=== PATIENT | male | born 1970 | race African-American/Black ===

== ENCOUNTER 2019-11-29 01:23 | Emergency (ER) | payer OTHER ==
[~2019-11-29] VITALS: Ht 188 cm; Wt 154.2 kg
[2019-11-29] MEDS ORDERED: LISINOPRIL-HCT1 EACH PO (01:32)
[2019-11-29] MEDS ORDERED: NORVASC 2.5 MG2.5 M1 PO (01:32)
[2019-11-29 02:15] LABS: ANION GAP 8 mmol/L (7-16); BUN 14 mg/dL (7-18); CALCIUM 9.5 mg/dL (8.5-10.1); CHLORIDE 93 mmol/L (98-107); CO2 27 mmol/L (21-32); CREATININE 1.4 mg/dL (0.7-1.3); GLUCOSE 281 mg/dL (74-106); POTASSIUM 3.9 mmol/L (3.5-5.1); SODIUM 128 mmol/L (136-145)
[2019-11-29 02:25] LABS: ALBUMIN 4.5 g/dL (3.4-5.0); LIPASE 152 U/L (73-393); SGOT 31 U/L (15-37); SGPT 49 U/L (30-65); TOTAL BILIRUBIN 0.6 mg/dL (0.2-1.0); TOTAL PROTEIN 8.4 g/dL (6.4-8.2); TROPONIN-I <0.06 ng/mL (<0.06)
[2019-11-29 02:30] LABS: URINE BILIRUBIN NEGATIVE (Negative); URINE BLOOD 1+ (Negative); URINE CLARITY CLEAR; URINE COLOR YELLOW; URINE GLUCOSE-RANDOM* 3+ (Negative); URINE KETONES 1+ (Negative); URINE LEUKOCYTES-REFLEX NEGATIVE (Negative); URINE NITRITE-REFLEX NEGATIVE (Negative); URINE PROTEIN (DIPSTICK) 2+ (Negative)
[2019-11-29 02:31] LABS: ABSOLUTE NEUTROPHILS 9.6 thou/uL (1.4-8.2); BASOPHILS 0.3 % (0.0-2.0); EOSINOPHILS 0.2 % (0.0-3.0); HEMATOCRIT 46.2 % (42.0-52.0); HEMOGLOBIN 14.8 gm/dL (14.0-18.0); MCH 26.6 pg (26.0-34.0); MCHC 32.1 g/dL (28.0-37.0); MCV 83.1 fL (80.0-100.0); MONOCYTES 2.3 % (1.0-8.0); PLATELET COUNT 167 thou/uL (150-400); POLYS 88.2 % (36.0-66.0); RBC 5.56 mil/uL (4.50-6.00); RDW 13.7 % (10.5-14.5); WBC 10.9 thou/uL (4.0-11.0)
[2019-11-29 02:39] LABS: BACTERIA-REFLEX 1-9 Few /HPF (None Seen); CASTS None Seen /LPF (None Seen); CRYSTALS None Seen /LPF (None Seen); MUCUS 4-6 Moderate strn/LPF (None Seen); SQUAMOUS 4-10 Moderate /LPF (0-3); URINE RBC 3-10 Few /HPF (0-2); URINE WBC-REFLEX 0-5 Rare /HPF (0-5)
[2019-11-29] MEDS ORDERED: ONDANSETRON ODT8 MG PO (03:20)
[2019-11-29] MEDS ORDERED: TRAMADOL 50 MG50 MG PO (03:20)
[2019-11-29] MEDS ORDERED: PRILOSEC OTC20 MG PO (03:20)
[2019-11-29 03:36] VITALS: BP 135/75
--- NOTE | 2019-11-29 14:06 | EKG ---
[facility] [address] [place] [address] ELECTROCARDIOGRAM REPORT Name: ELIAN MITCHELL [id number] Admission: 11/29/19 Attend Phys: Discharge: 11/29/19 Date of : 72 Report #: [id number] THIS REPORT FOR: cc: Elsie Thorpe Beth RNP Couchonnal, Luis F. MD ~ THIS REPORT FOR: //name// [facility] ED Test Date: 2019-11-29 Test Time: 02:13:17 Pat Name: ELIAN MITCHELL Department: Room: Gender: Satellite Technician: [place] [id number] : 1970 Requested By: Mohan Mark Order Number: [id number] MD: Pablo Foley Measurements Intervals [place] Rate: 84 P: 54 [place]: 228 QRS: 54 QRSD: 114 T: 7 QT: 414 QTc: 490 Interpretive Statements Sinus rhythm Prolonged [place] interval Probable left atrial enlargement Borderline intraventricular conduction delay Electronically Signed On 11-29-2019 14:05:42 CDT by Pablo Foley [email or web address] <ELECTRONICALLY SIGNED> By: Pablo Foley MD 11/29/19 1405 2 2 Pablo Foley MD /DAVIN
== END 2019-11-29 03:36 | disposition home or self-care (01) ==
LOC: ER 01:23
PROVIDERS: Emergency Medicine
DX: R10.13 Epigastric pain (principal); R11.2 Nausea with vomiting, unspecified; I10 Essential (primary) hypertension; Z98.890 Other specified postprocedural states; Z90.89 Acquired absence of other organs; Z79.899 Other long term (current) drug therapy

== ENCOUNTER → 2019-12-03 | Outpatient (CLI) | payer OTHER ==
[~2019-12-03] MED LIST: LISINOPRIL-HCT1 EACH PO; METFORMIN HCL500 M3 PO; NORVASC 2.5 MG2.5 M1 PO; ONDANSETRON ODT8 MG PO; OXYCODONE HCL 55 MG PO; PRILOSEC OTC20 MG PO; TRAMADOL 50 MG50 MG PO
== END ==
LOC: ULTRA 08:25
PROVIDERS: ATTEND Nurse Practitioner
DX: K80.80 Other cholelithiasis without obstruction (principal); N28.1 Cyst of kidney, acquired

== ENCOUNTER 2019-12-04 10:15 | Inpatient (IN) | payer OTHER ==
[~2019-12-04] VITALS: Ht 188 cm; Wt 148.3 kg
--- NOTE | ~2019-12-04 | O ---
[facility] [place] [address] OPERATIVE REPORT Name: ELIAN MITCHELL Room #: 437-P ADM IN M.R.#: [id number] Admission: 12/04/19 Attend Phys: Osmar Ayoub MD Discharge: Date of : 72 Report #: [id number] THIS REPORT FOR: cc: Elsie Thorpe Beth RNP Gates,Osmar Wetzel MD ~ CC: Elsie Ayoub DATE OF SERVICE: 12/05/2019 PROCEDURES PERFORMED: 1. Laparoscopic lysis of adhesions. 2. Laparoscopic cholecystectomy with intraoperative cholangiogram. PREOPERATIVE DIAGNOSIS: Acute cholecystitis. POSTOPERATIVE DIAGNOSIS: Severe chronic cholecystitis. SURGEON: Dr. Ayoub. PAPER STACKER: None. ANESTHESIA: 1. General. 2. Local. ESTIMATED BLOOD LOSS: 30 mL. SPECIMENS: Gallbladder and contents. COMPLICATIONS: None. FINDINGS: 1. Intra-abdominal adhesions. 2. Intraoperative cholangiogram findings: Ductotomy was on the cystic duct, normal common bile duct/common hepatic duct and proximal radical filling, no filling defects, filling of the duodenum appropriately, smooth tapering of the distal common bile duct. 3. Severe cholecystitis. INDICATIONS FOR PROCEDURE: The patient is a 49-year-old gentleman who recently presented to the ER, had a CT scan performed for epigastric abdominal pain. CT scan was normal. The patient was discharged home and followed up with primary care physician. Primary care physician ordered an ultrasound, which demonstrated dilated common bile duct and gallstones as well as other features. [facility] [address] [place] [address] OPERATIVE REPORT Name: ELIAN MITCHELL Room #: 437-P ADM IN M.R.#: [id number] Admission: 12/04/19 Attend Phys: Osmar Ayoub MD Discharge: Date of : 72 Report #: [id number] The patient was instructed to be directly admitted for workup. He was found to not have choledocholithiasis on imaging. The risks, benefits and alternatives of the procedure were discussed with the patient. The risks discussed included but were not limited to the risk of bleeding, infection, conversion to open, damage to any intra-abdominal anatomy (small bowel, large bowel, kidney, liver, spleen, blood vessels, nerves, etc.), damage to the common bile duct, necessitating further open procedures, prolonged hospitalization, future hospitalization and could be a life altering event, postoperative bile leak, necessitating further procedures, anesthesia (cardiac, pulmonary and neurologic type complications), and . The patient and his loved one had the opportunity to ask questions. All questions were answered to the best of my ability. At the end of the discussion, he did wish to proceed with surgery. DESCRIPTION OF PROCEDURE: After informed consent was obtained as above, the patient was taken to the operating room and placed in the supine position. General anesthesia was induced. Preprocedure antibiotics were administered. His anterior abdomen was prepped and draped in the usual sterile fashion after tucking his right arm. The timeout was performed. All were in agreement. A 5 mm right subcostal incision was made and a Veress needle was attempted to be inserted. This was successful. Pneumoperitoneum was created. Optiview technique was attempted, but unsuccessful at this position. Therefore, direct camera visualization technique was performed at the left subcostal position at the nipple line and was successful with gaining access to the peritoneal cavity with one attempt. The abdomen was inspected. He was found to have adhesions in his upper abdomen, from omentum to the anterior abdominal wall as well as from liver to the falciform and liver to the anterior abdominal wall. The following ports were then placed in standard fashion after injection of local anesthetic under direct visualization: A 5 mm right periumbilical port, two 5 mm right upper quadrant ports and a 12 mm subxiphoid port. There was no difficulty of placing the ports. The region underneath the attempted right subcostal port placement was closely inspected and it was determined that the peritoneal lining was never penetrated. The procedure continued by taking down omental adhesions, the anterior abdominal wall, gaining visualization of the liver. The liver was tightly adhered to the anterior abdominal wall and the falciform ligament and these adhesions were carefully lysed with a pair of scissors. Electrocautery was not used during the lysis of adhesions. The gallbladder was not visible. The dissection continued in the subhepatic space and the omentum was carefully peeled away from the liver using laparoscopic scissors. The gallbladder came into the field of view after approximately 45 minutes of lysis of adhesions. The gallbladder was grasped and retracted towards the patient's right shoulder very carefully as the liver was still somewhat adhered to the anterior abdominal wall. The dissection continued around the gallbladder by taking down the omentum that was tightly adhered to the gallbladder through adhesions. These adhesions were taken down with a mixture of blunt dissection as well as electrocautery as well as scissors. The omentum was cleared along the length of [facility] [address] [place] [address] OPERATIVE REPORT Name: ELIAN MITCHELL Room #: 437-P ADM IN Jody#: [id number] Admission: 12/04/19 Attend Phys: Osmar Ayoub MD Discharge: Date of : 72 Report #: [id number] the entire gallbladder down past the neck. The patient had a very long skinny gallbladder and it was also intrahepatic. The patient's Rouviere sulcus was not present taking away usual landmarks. Therefore, the dissection on the peritoneum of the gallbladder started out very high along the body of the gallbladder and the peritoneum was carefully dissected away using electrocautery. The peritoneum was opened up medially and laterally and up towards the dome of the gallbladder. The peritoneum was extremely thickened and friable and was opened up using electrocautery; however, it did still bleed very mildly. The triangle of Calot region was very difficult to access because the patient had an extremely long gallbladder and it was difficult to retract the liver due to the above-mentioned adhesions. Therefore, the extreme caution was used to retract the gallbladder carefully to expose the triangle of Calot region. The neck of the gallbladder was able to be dissected out and the most posterior aspect of the neck was able to be exposed. The lateral aspect of the neck of the gallbladder was carefully dissected out using blunt dissection. The triangle of Calot was then dissected out. The cystic duct did come into the field of view. However, this was a very difficult dissection as well. The cystic duct was not highlighted using the SPY technique. The cystic duct was dissected out circumferentially. The cystic plate was dissected off half way up the body of the gallbladder. The cystic artery was electrocauterized. The cystic artery was very tiny. It was likely not still perfusing the gallbladder. The critical view was obtained where I had only the cystic duct coming out of the gallbladder. I had the triangle of Calot already dissected out and I had the cystic plate dissected off half way up the body of the gallbladder. Next, the cystic duct was clipped with laparoscopic clip industrial maintenance instructor with one clip distally and a ductotomy was performed. A cholangiogram catheter was threaded and a cholangiogram was performed. With the cholangiogram, I did confirm that I was indeed on the cystic duct. With my ductotomy, I did confirm filling of the common hepatic duct and the proximal radicles as well as the common bile duct, and filling into the duodenum. There were no filling defect noted and this was confirmed with Radiology as well. The cholangiogram catheter was removed. Clips were placed on the cystic duct proximally adequately and tightly. The clips were secured nicely. The cystic duct was transected using laparoscopic scissors. Hemostasis was present. The gallbladder was then retracted away from the cystic plate and dissected off using electrocautery. This too was a very difficult dissection given that it was an intrahepatic gallbladder as well as severe inflammation that was at times very firm and indurated. The gallbladder was successfully dissected off the cystic plate entirely. There was no spillage of stones. The gallbladder was passed into a laparoscopic retrieval bag and removed out of the 12 mm port site under direct visualization entirely. The right upper quadrant was inspected. Hemostasis was present. All free fluid was suctioned out. It was irrigated and suctioned out again. The cystic plate was hemostatic. The clips were inspected and found to be intact. Given the severe amount of friability and inflammation of the tissue, Nam hemostatic agent was placed into the cystic plate wound bed. The 12 mm port site was closed using 0 [facility] [address] [place] [address] OPERATIVE REPORT Name: ELIAN MITCHELL Room #: 437-P ADM IN M.R.#: [id number] Admission: 12/04/19 Attend Phys: Osmar Ayoub MD Discharge: Date of : 72 Report #: [id number] Vicryl in a laparoscopic fascial closure device fashion. The pneumoperitoneum was released. The port sites were inspected upon removal and found to be hemostatic. The wound sites were hemostatic. The ports were removed entirely. The skin was closed using 4-0 Monocryl in a subcuticular interrupted fashion. The skin was cleaned and dried and covered with Dermabond. The patient tolerated the procedure well. There were no adverse events throughout the course of the procedure. By: 2037 2219 Osmar Ayoub MD /bayron
[~2019-12-04 10:15] MED LIST changes: -METFORMIN HCL500 M3 PO; -OXYCODONE HCL 55 MG PO
[2019-12-04 10:54] VITALS: BP 159/107
[2019-12-04 11:23] LABS: ABSOLUTE NEUTROPHILS 4.9 thou/uL (1.4-8.2); BASOPHILS 0.5 % (0.0-2.0); EOSINOPHILS 3.5 % (0.0-3.0); HEMATOCRIT 44.1 % (42.0-52.0); HEMOGLOBIN 14.2 gm/dL (14.0-18.0); MCH 26.7 pg (26.0-34.0); MCHC 32.1 g/dL (28.0-37.0); MCV 83.1 fL (80.0-100.0); MONOCYTES 6.5 % (1.0-8.0); PLATELET COUNT 203 thou/uL (150-400); POLYS 65.5 % (36.0-66.0); RBC 5.31 mil/uL (4.50-6.00); RDW 13.8 % (10.5-14.5); WBC 7.5 thou/uL (4.0-11.0)
[2019-12-04 11:34] LABS: CALCIUM 10.1 mg/dL (8.5-10.1); CREATININE 1.6 mg/dL (0.7-1.3); POTASSIUM 3.9 mmol/L (3.5-5.1)
[2019-12-04] MEDS ORDERED: METFORMIN HCL500 M3 PO (11:37)
[2019-12-04 11:40] LABS: ALBUMIN 4.1 g/dL (3.4-5.0); TOTAL BILIRUBIN 0.7 mg/dL (0.2-1.0)
--- NOTE | 2019-12-04 13:19 | NUR ---
PT CARE ASSUMED AT 1030 A DIRECT ADMIT. ADMISSION COMPLEETE. IV PLACED BY IV TEAM AFTER ATTEMPTING BY RN UNSUCCESFULLY. PT PCP NOTIFIED OF PT INPATIENT STATUS. SCD'S IN PLACE. FLUIDS INFUSING. RT ORDERED. PT PAIN LEVEL AT A 1/10. TOLERATED WITHOUT PAIN MEDICATIONS. ACHS NON INSULINE DEPENDENT. PT DID NOT TAKE HIS BP AND BG MEDICATIONS THIS MORNING. GI CONSULTED. MRI ORDERED FOR TODAY. CONSENT SIGNED AND FAXED. IN THE ROOM. MEDICATIONS RECONCILLED. WILL CONTINUE TO MONITOR.
[2019-12-04 17:48] VITALS: BP 133/83
[2019-12-04 19:47] VITALS: BP 143/89
--- NOTE | 2019-12-04 22:20 | NUR ---
ASSESSMENT COMPLETED. PT IS CALM AND PLEASANT. HE DENIES ANY GI OR DISCOMFORT. HE IS TOLERTING CLR LIQUIDS [facility] WHERE HE WILL BE NPO FOR CHOLECYSTECTOMY IN THE AM. PT SPOKE TO THE SURGEON-DR CLARKE AND UPDATED ON PLAN. AFEBRILE. UP AD LLOY[place].CALLS APPROPRIATELY. WILL CONTINUE WITH POC TILL EOS.
[2019-12-05 04:37] VITALS: BP 114/65
[2019-12-05 07:25] VITALS: BP 126/78
[2019-12-05] MEDS ORDERED: OXYCODONE HCL 55 MG PO (13:36)
[2019-12-05 15:34] VITALS: BP 121/57
--- NOTE | 2019-12-05 20:21 | NUR ---
PT CARE ASSUMED AT 0700. A&0x4. PT GONE TO SURGERY AT 0943 AND RETURNED AT 1515. POST OP VITALS STABLE. WILL CONTINUE TO KEEP PT ON 2 LITERS WHILE SLEEPING DUE TO HISTORY OF SLEEP APNEA WITH NO SLEEP STUDY YET. PT WILL DIP DOWN TO 79% WHILE FALLING ASLEEP. PAIN IS CONTROLLED VERY WELL WITH GIVING ONLY ONE DOSE OF TRAMADOL. PERSCRIPTION DROPPED OFF TO PHARMACY AND HAS PICKED IT UP AND TAKEN HOME. PT HAS GONE TO THE BATHROOM AND URINATED. TOLERATING FOOD WELL DIET ADVANCED. PT UP AT [facility] IN THE ROOM. IV PATENT WITH NO REDNESS OR EDEMA. SCD'S IN PLACE. WILL CONTINUE TO MONITOR.
[2019-12-05 20:22] VITALS: BP 133/73
--- NOTE | 2019-12-05 20:57 | H ---
[facility] [address] [place] [address] HISTORY AND PHYSICAL Name: ELIAN MITCHELL Room #: 437-P ADM IN M.R.#: [id number] Admission: 12/04/19 Attend Phys: Osmar Ayoub MD Discharge: Date of : 72 Report #: [id number] THIS REPORT FOR: cc: Elsie Thorpe Beth RNP Gates, Clinton R. MD ~ CC: Elsie Ayoub DATE OF SERVICE: 12/04/2019 ADMITTING PHYSICIAN: Dr. Ayoub. CHIEF COMPLAINT: Abdominal pain. HISTORY OF PRESENT ILLNESS: The patient is a very pleasant 49-year-old gentleman who was recently in the ER with epigastric abdominal pain. The patient reports that the pain began on night. He attempted to use Pepto-Bismol, but did not get relief. He was unable to sleep that night, so he presented to the ER. While in the ER, he did have vomiting. He reports that after being discharged home from the ER, he went to see his primary care physician who ordered an ultrasound. The ultrasound demonstrated a dilated common bile duct and was concerning for choledocholithiasis. The patient was also found to have cholelithiasis. He was suggested to be directly admitted for further workup and management. The patient reports similar pain episode approximately 1 year ago. PAST MEDICAL HISTORY: 1. Hypertension. 2. Diabetes mellitus, on metformin. 3. History of perforated appendicitis. PAST SURGICAL HISTORY: 1. Exploratory laparotomy for perforated appendicitis in 1981. 2. Colostomy. 3. Colostomy reversal. 4. Parathyroidectomy. SOCIAL HISTORY: Denies use of alcohol, tobacco or recreational drugs. He is employed at [employer]. FAMILY HISTORY: 1. Denies coagulopathy. 2. Mom had breast cancer. 3. Maternal grandmother had breast cancer. REVIEW OF SYSTEMS: [facility] [address] [place] [address] HISTORY AND PHYSICAL Name: ELIAN MITCHELL Room #: 437-P [facility] IN M.R.#: [id number] Admission: 12/04/19 Attend Phys: Osmar Ayoub MD Discharge: Date of : 72 Report #: [id number] CONSTITUTIONAL: No fever. No chills. HEENT: Denies blurring of vision, double vision, headaches, hearing loss, sinus drainage or sore throat. Denies blurring of vision, double vision, headaches, hearing loss, sinus drainage or sore throat. CARDIOVASCULAR: Denies chest pain, palpitations, orthopnea or paroxysmal nocturnal dyspnea. RESPIRATORY: Denies cough, wheezing, hemoptysis, or shortness of air. GASTROINTESTINAL: See above and below. GENITOURINARY: Denies dysuria or hematuria or kidney stones. No urinary frequency, urgency or incontinence. Denies dysuria or hematuria or kidney stones. No urinary frequency, urgency or incontinence. MUSCULOSKELETAL: No joint pain. No muscle pain. NEUROLOGICAL: Denies tremor, stroke or seizure. Denies tremor, stroke or seizure. HEMATOLOGIC / LYMPHATICS: Denies easy bruising, easy bleeding or enlarged lymph nodes. SKIN: No rash or ulceration. ENDOCRINE: No heat or cold intolerance PSYCHIATRIC: Denies depression, anxiety, or schizophrenia. PHYSICAL EXAMINATION: VITAL SIGNS: Temperature is 36.9, pulse 82, respiratory rate 18, blood pressure 159/107, pulse ox is 100% on room air. GENERAL: No apparent distress, alert and oriented x3. HEENT: PERRLA, EOMI, MMM, NCAT. NECK: Supple. No LAD. CARDIOVASCULAR: Regular rhythm and rate. Hemodynamically stable. Normal capillary refill. Regular rhythm and rate. Hemodynamically stable. Normal capillary refill. PULMONARY: Nonlabored. Clear to auscultation bilaterally. ABDOMEN: Soft, nontender, nondistended. No guarding, rebound or rigidity. He does have an exploratory laparotomy, midline incision that is well healed. EXTREMITIES: Calves soft, nontender, no edema. SKIN: No rashes or bruises. PSYCHIATRIC: Normal mood and affect Normal mood and affect. NEUROLOGICAL: Grossly intact. CN II-XII grossly intact. MUSCULOSKELETAL: 5/5 strength in upper extremities and lower extremities bilaterally. LYMPHATICS: No cervical, inguinal, or supraclavicular lymphadenopathy. LABORATORY DATA: White blood count 7.5, hemoglobin 14.2, hematocrit 44.1, platelets 203. Sodium 137, potassium 3.9, creatinine 1.6, glucose 166. COVID-19 PCR negative. IMAGING: CT of the abdomen and pelvis, impression: [address] [address] HISTORY AND PHYSICAL Name: ELIAN MITCHELL Room #: 437-P ADM IN M.R.#: [id number] Admission: 12/04/19 Attend Phys: Osmar Ayoub MD Discharge: Date of : 72 Report #: [id number] 1. No acute findings in the abdomen and pelvis. 2. Hepatic steatosis. Abdominal ultrasound, gallbladder wall is mildly thickened measuring 3.5 mm. There is minimal surrounding pericholecystic fluid. There are small gallstones present. Common bile duct measures 7.4 mm. ASSESSMENT AND PLAN: A 49-year-old male with possible choledocholithiasis. DIAGNOSES: 1. Possible choledocholithiasis. 2. Cholelithiasis. 3. Diabetes mellitus. 4. Hypertension. 5. Acute kidney injury PLAN: 1. Admit to myself. 2. Consult Gastroenterology. Appreciate recommendations. 3. CBC, CMP and lipase pending. 4. MRCP pending. 5. IV fluid resuscitation. 6. Blood glucose monitoring and insulin sliding scale. Hold metformin. 7. Hydralazine p.r.n. while n.p.o. 8. N.p.o., while awaiting MRCP. 9. The patient may need an ERCP followed by laparoscopic cholecystectomy. We will await results of MRCP. <ELECTRONICALLY SIGNED> By: Osmar Ayoub MD 12/05/19 2057 1639 1710 Osmar Ayoub MD /nt
[2019-12-06 05:00] VITALS: BP 135/78
[2019-12-06 05:36] LABS: MCH 27.1 pg (26.0-34.0)
[2019-12-06 05:39] LABS: HEMATOCRIT 38.6 % (42.0-52.0); HEMOGLOBIN 12.5 gm/dL (14.0-18.0); MCHC 32.4 g/dL (28.0-37.0); MCV 83.7 fL (80.0-100.0); RBC 4.61 mil/uL (4.50-6.00); RDW 13.6 % (10.5-14.5); WBC 16.8 thou/uL (4.0-11.0)
--- NOTE | 2019-12-06 05:48 | NUR ---
ASSESSMENT COMPLETED. PT BEEN UP AD LLOYD THRO THE NIGHT. VOIDING OKAY. SCDS IN PLACE. AFEBRILE. TOLERATING REGULAR DIET. PLACED ON /NC THRO NOC TO KEEP SATS ABOVE 92% D/T REMOTE SLEEP APNEA ISSUES. LAP SITES TO ABDOMEN LOOK OKAY.PAIN MANAGED BY OXYCODONE AND TYLENOL.PT BEEN USING I/S WHILE AWAKE.CALLS APPROPRIATELY.WILL CONTINUE WITH POC TILL EOS.
[2019-12-06 06:03] LABS: ALBUMIN 3.4 g/dL (3.4-5.0); CALCIUM 9.2 mg/dL (8.5-10.1); CREATININE 1.6 mg/dL (0.7-1.3); PHOSPHORUS 3.6 mg/dL (2.5-4.9); POTASSIUM 4.5 mmol/L (3.5-5.1)
[2019-12-06 07:10] VITALS: BP 116/71
--- NOTE | 2019-12-06 07:26 | NUR ---
Nutrition: Pt triggered for BMI > 40, currently 42 kg/m2 at 327#. Admitted w/ abdominal pain, now just POD #1 from lysis of adhesions and cholecystecomy procedures for severe chronic cholecystitis. Weight loss education not deemed appropriate at this time. Will reassess if more appropriate a little further postop, follow up at time of LOS.
[2019-12-06] MEDS ORDERED: PRINIVIL20 M1 PO (10:43)
[2019-12-06] MEDS ORDERED: MIRALAX17 GM PO (10:44)
[2019-12-06] MEDS ORDERED: COLACE 100 MG100 MG PO (10:44)
[2019-12-06 11:15] VITALS: BP 116/71
== END 2019-12-06 14:12 | disposition home or self-care (01) | DRG 418 ==
LOC: 4S 10:15
PROVIDERS: ADMIT Surgery; ATTEND Surgery
DX: K80.00 Calculus of gallbladder with acute cholecystitis without obstruction (principal); N17.9 Acute kidney failure, unspecified; I10 Essential (primary) hypertension; Z20.828 Contact with and (suspected) exposure to other viral communicable diseases; E89.0 Postprocedural hypothyroidism; E11.9 Type 2 diabetes mellitus without complications; Z93.3 Colostomy status; Z80.3 Family history of malignant neoplasm of breast; Z79.899 Other long term (current) drug therapy; K66.0 Peritoneal adhesions (postprocedural) (postinfection)
CPT/HCPCS: 10102; 50010; 50101

== ENCOUNTER → 2020-01-01 | Outpatient (CLI) | payer OTHER ==
[~2020-01-01] MED LIST changes: +COLACE 100 MG100 MG PO; +METFORMIN HCL500 M3 PO; +MIRALAX17 GM PO; +OXYCODONE HCL 55 MG PO; +PRINIVIL20 M1 PO
[2020-01-01 13:46] LABS: CALCIUM 9.7 mg/dL (8.5-10.1); CREATININE 1.4 mg/dL (0.7-1.3)
== END ==
LOC: LABMALL 13:08
PROVIDERS: ATTEND Nurse Practitioner
DX: R79.89 Other specified abnormal findings of blood chemistry (principal); I10 Essential (primary) hypertension

== ENCOUNTER → 2020-01-06 | Outpatient (CLI) | payer OTHER | LOC: LAB 01-03 15:01 | PROVIDERS: ATTEND Internal Medicine | DX: Z01.812 Encounter for preprocedural laboratory examination (principal); Z11.59 Encounter for screening for other viral diseases ==

== ENCOUNTER → 2020-01-07 | Outpatient (CLI) | payer OTHER ==
--- NOTE | 2020-01-13 13:24 | SLE ---
[facility] [address] [place] [address] POLYSOMNOGRAPHY STUDY Name: ELIAN MITCHELL Room #: REG [facility]#: [id number] Admission: 01/07/20 Attend Phys: Hugh Zavala MD Discharge: Date of : 72 Report #: [id number] THIS REPORT FOR: //name// CC: Erika Zavala MD DATE OF SERVICE: 01/07/2020 SLEEP STUDY ATTENDING PHYSICIAN: Hugh Zavala M.D. The patient is a 49-year-old who weighs 332 pounds with a BMI of 42.6. The patient's Cordova score was 11. The patient underwent split night study performed at [facility]. During the night study, the patient spent 482 minutes in the bed and slept for 399 minutes with a sleep efficiency of 83%. Sleep latency was 15.8 minutes with a REM latency of 314 minutes. Sleep architecture showed increased stage 1 and stage 2 sleep, normal slow wave and normal REM sleep. During the initial diagnostic portion of the study, the patient slept for 198 minutes. During that time, there were 11 obstructive apneas, 5 mixed apneas, 10 central apneas and 83 hypopneas. The patient's AHI was 32.9 per hour with a supine AHI of 105 per hour. The patient did not have REM sleep during the diagnostic portion. EKG monitoring revealed an average heart rate of 74 beats per minute. No sustained arrhythmias observed. Nocturnal oximetry study revealed an average oxygen saturation of 96% with the lowest of 77%. 2.8 minutes were spent in oxygen saturation less than 89%. No PLMS observed. The patient met the criteria for CPAP initiation. It was started at 5 cm water and titrated up to 12 cm water. At the final pressure, the patient slept for 104.7 minutes including 51 minutes of supine REM sleep. The patient's AHI was 6.3 per hour and oxygen saturation remained above 91%. I would recommend 13 cm water at the final pressure. IMPRESSION: 1. Severe obstructive sleep apnea at an AHI of 32.9 per hour with a supine AHI of 105 per hour. [facility] [address] [place] [address] POLYSOMNOGRAPHY STUDY Name: ELIAN MITCHELL [id number] Admission: 01/07/20 Attend Phys: Hugh Zavala MD Discharge: Date of : 72 Report #: [id number] 2. No clinically significant nocturnal hypoxia. 3. No clinically significant periodic limb movements of sleep. RECOMMENDATIONS: 1. CPAP at 13 cm water should be used on a nightly basis. 2. Follow up in 4-6 weeks to assess compliance with CPAP and to document clinical improvement. 3. Weight loss is strongly advised. 4. Avoid COMMERCIAL LIGHT FIXTURE ASSEMBLER depressants. 5. Cautioned regarding driving until symptoms of sleep apnea resolve with the use of CPAP. <ELECTRONICALLY SIGNED> By: Nathan Lewis MD 01/13/20 1324 1720 1746 Nathan Lewis MD /bayron
== END ==
LOC: SLEEPLAB 01-06 12:08
PROVIDERS: ATTEND Internal Medicine
DX: G47.33 Obstructive sleep apnea (adult) (pediatric) (principal)

== ENCOUNTER → 2020-03-06 | Outpatient (CLI) | payer OTHER ==
[2020-03-06 08:57] LABS: ALBUMIN 4.4 g/dL (3.4-5.0); CREATININE 1.5 mg/dL (0.7-1.3); POTASSIUM 3.8 mmol/L (3.5-5.1); TOTAL BILIRUBIN 0.4 mg/dL (0.2-1.0); TOTAL PROTEIN 7.7 g/dL (6.4-8.2)
[2020-03-06 23:06] LABS: GLYCOHEMOGLOBIN (HGB A1C) 6.8 % (4.8-5.6)
== END ==
LOC: LAB 07:59
PROVIDERS: ATTEND Nurse Practitioner
DX: E11.9 Type 2 diabetes mellitus without complications (principal)

== ENCOUNTER 2021-01-19 15:03 | Emergency (ER) | payer OTHER ==
[~2021-01-19] VITALS: Ht 188 cm; Wt 145.2 kg
[2021-01-19 15:04] VITALS: BP 175/90
== END 2021-01-19 16:25 | disposition home or self-care (01) ==
LOC: ER 15:03
DX: S97.02XA Crushing injury of left ankle, initial encounter (principal); S90.512A Abrasion, left ankle, initial encounter; I10 Essential (primary) hypertension; Z90.89 Acquired absence of other organs; Z79.899 Other long term (current) drug therapy; W20.8XXA Other cause of strike by thrown, projected or falling object, initial encounter; Y93.89 Activity, other specified; Y92.89 Other specified places as the place of occurrence of the external cause; Y99.8 Other external cause status